=== PATIENT | female | born 1950 | race Two or more races ===

== ENCOUNTER 2024-12-11 13:22 | Outpatient (CLI) | payer MEDICAID ==
[2024-12-11 14:01] LABS: Hematocrit 37.0 % (36.0-46.0); Hemoglobin 12.5 g/dL (12.2-16.2); Mean Corpuscular Hemoglobin 28.0 pg (28.0-32.0); Mean Corpuscular Volume 83.1 fL (80.0-100.0); Nucleated Red Blood Cells % 0.1 %
== END 2024-12-11 17:00 | disposition home or self-care (01) ==
LOC: LAB 13:22
PROVIDERS: ATTEND Internal Medicine
DX: J18.9 Pneumonia, unspecified organism (principal)
CPT/HCPCS: 36415; 85025

== ENCOUNTER 2025-02-13 14:28 | Outpatient (CLI) | payer MEDICAID ==
[~2025-02-13] VITALS: Ht 172.7 cm; Wt 100.7 kg
[2025-02-13] MEDS ORDERED: ADENOSINE 90 MG/30 ML INJ IV ONE (14:54)
[2025-02-13] MEDS ORDERED: ADENOSINE 85 MG in GIVE UN-DILUTED 0 ML IV ONE (16:15)
== END 2025-02-13 17:00 | disposition home or self-care (01) ==
LOC: Rad HDHVI 14:28
PROVIDERS: ATTEND Internal Medicine Cardiovascular Disease
DX: I25.10 Atherosclerotic heart disease of native coronary artery without angina pectoris (principal); I10 Essential (primary) hypertension; I25.2 Old myocardial infarction; R07.89 Other chest pain; R42 Dizziness and giddiness; R06.02 Shortness of breath; R94.31 Abnormal electrocardiogram [ECG] [EKG]; E78.00 Pure hypercholesterolemia, unspecified; Z82.49 Family history of ischemic heart disease and other diseases of the circulatory system; Z95.1 Presence of aortocoronary bypass graft
CPT/HCPCS: 78452; 93017; A9500; J0153